=== PATIENT | female | born 1970 | race African-American/Black ===

== ENCOUNTER 2020-04-09 16:37 | Emergency (ER) | payer OTHER ==
[~2020-04-09] VITALS: Ht 160 cm; Wt 88.9 kg
[2020-04-09 16:50] VITALS: Ht 160 cm; Wt 88.9 kg
[2020-04-09 18:04] LABS: BASOPHIL % 0.9 % (0-2); PLATELET COUNT 370 x10^3mcL (130-400)
[2020-04-09 18:19] LABS: CALCIUM 8.8 mg/dL (8.5-10.1); CARBON DIOXIDE 24.7 mmol/L (21-32); CHLORIDE SERUM 102 mmol/L (98-107); GFR1 > 60 mL/min; GLUCOSE SERUM 109 mg/dL (74-106); POTASSIUM SERUM 3.4 mmol/L (3.5-5.1); SODIUM SERUM 139 mmol/L (136-145)
[2020-04-09 18:24] LABS: ALBUMIN 3.9 g/dL (3.4-5.0); ALKALINE PHOSPHATASE 86 U/L (46-116); ALT/SGPT 17 U/L (14-59); AST/SGOT 14 U/L (15-37); BILIRUBIN TOTAL 0.3 mg/dL (0.20-1.00); LIPASE 102 IU/L (73-393)
[2020-04-09 22:18] VITALS: BP 128/76
== END 2020-04-09 22:18 | disposition short-term general hospital (02) ==
LOC: ED 16:37
PROVIDERS: Emergency Medicine
DX: R10.12 Left upper quadrant pain (principal); R11.10 Vomiting, unspecified; G43.909 Migraine, unspecified, not intractable, without status migrainosus; Z98.890 Other specified postprocedural states; Z88.0 Allergy status to penicillin; Z88.6 Allergy status to analgesic agent
CPT/HCPCS: J2270; J2550; J3010; J7030